=== PATIENT | male | born 1960 | race Caucasian/White ===

== ENCOUNTER 2021-04-05 22:28 | Emergency (ER) | payer OTHER, BC, SELFPAY ==
[2021-04-05 22:29] VITALS: BP 175/92; PULSE 98; RESP 18; TEMP 36.6; O2SAT 98
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
[2021-04-05 23:22] LABS: Abs Immature Grans 0.08 10^3/uL (0.0-0.06); Absolute Basophil Count 0.05 10^3/uL (0.0-0.2); Absolute Eosinophil Count 0.23 10^3/uL (0.0-0.7); Absolute Lymphocyte Count 1.23 10^3/uL (1.2-3.4); Absolute Monocyte Count 0.67 10^3/uL (0.1-0.8); Absolute Neutrophil Count 5.34 10^3/uL (1.2-6.7); Basophils % 0.7; HCT 43.9 % (40.0-50.0); Immature Grans % 1.1; Lymphocytes % 16.2; MCH 30.3 pg (27.0-33.0); MCHC 34.2 % (32.0-36.0); MCV 88.7 fL (80-95); MPV 11.1 fL (8.0-11.0); Monocytes % 8.8; Neutrophils % 70.2; Nucleated RBC 0 %; Platelet Count 169 10^3/uL (130-400); RBC 4.95 10^6/uL (4.36-5.78); RDW 13.2 % (11.8-14.1); RDW-SD 42.5 fL
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
[2021-04-05 23:43] LABS: Lipase 90 U/L (73-393)
[2021-04-05 23:47] LABS: Alkaline Phosphatase 85 U/L (46-116); Anion Gap 10.4 mmol/L (3-11); BUN 35 mg/dL (7-18); Bilirubin, Total 0.4 mg/dL (0.2-1.0); CO2 27.6 mmol/L (21.0-32.0); CREATININE 1.7 mg/dL (0.70-1.30); Calcium 9.7 mg/dL (8.5-10.1); Chloride 101 mmol/L (98-107); Estimated GFR 41.32 (mL/min/1.73m2); Glucose 196 mg/dL (74-106); Sodium 139 mmol/L (136-145); Total Protein 7.2 g/dL (6.4-8.2)
[2021-04-05] MEDS: ACETAMINOPHEN 1,000 MG/100 ML BTL 100 MG (23:48)
[2021-04-06] VITALS (13 sets, daily range): BP systolic 145–161; BP diastolic 55–86; PULSE 81–88; RESP 7–17; O2SAT 95–98
[2021-04-06 00:09] LABS: ALT 33 U/L (16-63); AST 32 U/L (15-37)
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
[2021-04-06] MEDS: Normal Saline 500 ML IV (01:08)
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
--- NOTE | 2021-04-06 01:27 | DI.VRAD_ITS ---
PROCEDURE INFORMATION: Exam: XR Left Foot Exam date and time: 04/06/2021 12:50 AM Age: 60 years old Clinical indication: Left; Patient HX: L foot pain TECHNIQUE: Imaging protocol: XR Left foot. Views: 3 or more views. COMPARISON: No relevant prior studies available. FINDINGS: Bones/joints: Calcaneal spurring noted. Chronic ossicle measuring 1.5 cm adjacent to the cuboid bone. No acute fracture or dislocation. Interosseous lipoma suspected in the calcaneus on the lateral film Soft tissues: No significant swelling. Vascular calcifications IMPRESSION: No acute findings. Dictated and Authenticated by: Zaki Cruz MD. Ordering:VIRIDIANA Carvajal MD
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
== END 2021-04-06 02:31 | disposition home or self-care (01) ==
LOC: ER 04-06 02:45
PROVIDERS: Physician Assistant; Emergency Provider Emergency Medicine
DX: M54.2 Cervicalgia (principal); S30.1XXA Contusion of abdominal wall, initial encounter; R51.9 Headache, unspecified; M25.572 Pain in left ankle and joints of left foot; V53.6XXA Passenger in pick-up truck or van injured in collision with car, pick-up truck or van in traffic accident, initial encounter
CPT/HCPCS: 36415; 74177; 80053; 83690; 86850; 86900; 86901; 96361; 96374; 99285; 70450; 71260; 72125; 73630; 85025; 99284; J0131

== ENCOUNTER 2025-05-16 14:32 | Emergency (ER) | payer BC, SELFPAY ==
[2025-05-16 14:33] VITALS: BP 191/85; PULSE 63; RESP 18; TEMP 36.5; O2SAT 95
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
--- NOTE | 2025-05-16 15:00 | DI.CT_ITS ---
Exam(s) CT PELVIC WO EXAM: CT PELVIC WO CLINICAL HISTORY: low back/R hip pain x 6 weeks, radicular symptoms. TECHNIQUE: Imaging Protocol: Axial computed tomography images with coronal and sagittal reformatted images were created and reviewed CONTRAST MATERIAL: Intravenous: none Oral: None COMPARISON: CT CT CHEST/ABD/PEL W from 04/06/2021 FINDING: PELVIS: OSSEOUS: No pelvic nor hip fractures evident. Mild degenerative changes in both hips. No evidence of avascular necrosis femoral heads. Small lucent nonexpansile bone lesionin the left iliac bone appears unchanged from 2020 and therefore benign. ANTERIOR ABDOMINAL WALL/GI:No evidence of significant anterior abdominal wall nor inguinal hernia in the pelvis evident.No obvious bowel obstruction. No evidence of appendicitis.No evidence of acute sigmoid diverticulitis.No free fluid in the pelvis. LYMPH NODES: There is no intrapelvic nor inguinal adenopathy. URINARY BLADDER: No calculi nor obvious masses evident REPRODUCTIVE: Prostate size normal. Seminal vesicles unremarkable.. There is calcification along the length of the bilateral vas deferens, often seen with diabetes. IMPRESSION: 1. No significant acute findings in the pelvis. 2. Calcification of the bilateral vas deferens incidentally noted. 3. No abnormal mass nor fluid collections in the pelvis. Called by myself to ER physician 05/16/2025 4:40 p.m. RADIATION DOSE DELIVERED: 1,302mGy.cm Total DLP DATA REPOSITORY: All CT scans at this facility are submitted to the National Radiology Data Registry (NRDR) Dose Index Registry (DIR) with the [employer] ([employer]). RADIATION OPTIMIZATION: All CT scans at this facility use at least one of these dose optimization techniques: automated exposure control; mA and/or kV adjustment per patient size (includes targeted exams where dose is matched to clinical indication); or iterative reconstruction.
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
[2025-05-16] MEDS: Acetaminophen 500 MG TAB 1000 MG PO (15:14)
[2025-05-16] MEDS: oxyCODONE 5 MG TAB PO (15:14)
[2025-05-16] MEDS: predniSONE 20 MG TAB 40 MG PO (15:15)
[2025-05-16 15:16] VITALS: RESP 18
[2025-05-16 15:24] VITALS: BP 191/85; PULSE 63; RESP 18; TEMP 36.5; O2SAT 100
[2025-05-16 17:26] VITALS: BP 175/87; PULSE 60; RESP 16; TEMP 36.5; O2SAT 100
== END 2025-05-16 17:26 | disposition home or self-care (01) ==
PROVIDERS: Emergency Provider Emergency Medicine
DX: M51.369 Other intervertebral disc degeneration, lumbar region without mention of lumbar back pain or lower extremity pain; M48.00 Spinal stenosis, site unspecified; M54.31 Sciatica, right side
CPT/HCPCS: 99284 ×2; 72131; 72192; J7512

== ENCOUNTER 2025-05-21 14:23 | Outpatient (CLI) | payer BC, SELFPAY ==
--- NOTE | 2025-05-21 14:41 | DI.RAD_ITS ---
Exam(s) XR LUMBAR SPINE COMPLETE EXAM: XR LUMBAR SPINE COMPLETE CLINICAL HISTORY: M54.50 Low back pain, unspecified chronicity, unspecified whether sciatica. TECHNIQUE: 2D digital imaging was performed. COMPARISON: No exams were available for comparison FINDINGS: Five weight-bearing views of the lumbar spine including standing weight-bearing flexion extension views, No evidence fracture, listhesis, nor pars defects. Moderate disc space narrowing again noted at L4-5 level. Flexion and extension lateral views do not reveal slippage-listhesis. Bone density normal. No osseous lesions. No scoliosis. IMPRESSION: As above. DATA REPOSITORY: RADIATION DOSE DELIVERED:
== END 2025-05-21 14:43 ==
DX: M54.50 Low back pain, unspecified (principal)
CPT/HCPCS: 72110